=== PATIENT | female | born 1980 | race American Indian/Alaskan Native ===

== ENCOUNTER 2019-04-04 18:38 | Emergency (ER) | payer SELFPAY ==
--- NOTE | 2019-04-04 18:47 | Event Note ---
ED Screening Note ED Screening Note: went to the clinic advised to be seen in the ED having vaginal bleeding 5 days pt is currently 9 weeks no abd pain /P:1/A:0 no PMHx no allergies to meds This initial assessment/diagnostic orders/clinical plan/treatment(s) is/are subject to change based on patients health status, clinical progression and re- assessment by fellow clinical providers in the ED. Further treatment and workup at subsequent clinical providers discretion. Patient/guardian urged not to elope from the ED as their condition may be serious if not clinically assessed and managed. Initial orders include: labs, UA, US
[2019-04-04 18:51] VITALS: BP 114/54
[2019-04-04 20:03] LABS: Basophils % (Auto) 0.5 % (0.0-1.8); Eosinophils # (Auto) 0.2 K/mm3 (0.0-0.4); Eosinophils % (Auto) 2.5 % (0.0-4.3); Hematocrit 36.3 % (30.3-42.9); Hemoglobin 12.1 gm/dl (10.1-14.3); Lymphocytes # (Auto) 1.3 K/mm3 (1.2-5.4); Lymphocytes % (Auto) 18.3 % (13.4-35.0); Mean Corpuscular HGB Conc 33 % (30-34); Mean Corpuscular Volume 87 fl (79-97); Monocytes # (Auto) 0.4 K/mm3 (0.0-0.8); Monocytes % (Auto) 4.9 % (0.0-7.3); Platelet Count 272 K/mm3 (140-440); Red Blood Count 4.15 M/mm3 (3.65-5.03); Red Cell Distribution Width 13.8 % (13.2-15.2)
[2019-04-04 20:10] LABS: Bilirubin,Urine NEG (Negative); Blood,Urine LG (Negative); Color,Urine Yellow (Yellow); Mucus,Urine FEW /HPF; Urobilinogen,Urine < 2.0 mg/dL (<2.0)
[2019-04-04 20:15] LABS: RBC,Urine > 182.0 /HPF (0.0-6.0)
--- NOTE | 2019-04-04 21:27 | Emergency Department Report ---
ED Female HPI - General Chief complaint: Vaginal Bleeding Stated complaint: /BLEEDING Time Seen by Provider: 04/04/19 18:45 Source: patient Mode of arrival: Ambulatory Limitations: No Limitations - History of Present Illness Initial comments: This is a 38-year-old who presents to the ED cc of vaginal bleeding for the past 5 days. Patient went to the clinic and had a test done and was told to come to ED for evaluation based on the vaginal bleeding.went to the clinic advised to be seen in the ED. Pt states that b manuelito was heavier than it is today, she denies f/c/n/v/abdominal or pelvic pain Complaint: vaginal bleeding - Related Data Previous Rx's Medication Instructions Recorded Last Taken Type Acetaminophen [Acetaminophen ER 650 mg PO Q8HR PRN #20 tablet.er 04/04/19 Unknown Rx TAB] Vit-Fe Fumar-FA [ 1 tab PO QDAY #30 tablet 04/04/19 Unknown Rx Vitamin] Allergies Allergy/AdvReac Type Severity Reaction Status Date / Time No Known Allergies Allergy Unverified 04/04/19 18:51 ED Review of Systems ROS: Stated complaint: /BLEEDING Other details as noted in HPI Comment: All other systems reviewed and negative ED Past Medical Hx - Past Medical History Previous Medical History?: No - Surgical History Past Surgical History?: No - Social History Smoking Status: Never Smoker Substance Use Type: None - Medications Home Medications: Home Medications Medication Instructions Recorded Confirmed Last Taken Type Acetaminophen [Acetaminophen ER 650 mg PO Q8HR PRN #20 tablet.er 04/04/19 Unknown Rx TAB] Vit-Fe Fumar-FA [ 1 tab PO QDAY #30 tablet 04/04/19 Unknown Rx Vitamin] ED Physical Exam - General Limitations: No Limitations General appearance: alert, in no apparent distress - Head Head exam: Present: atraumatic, normocephalic - Eye Eye exam: Present: normal appearance - ENT ENT exam: Present: mucous membranes moist - Neck Neck exam: Present: normal inspection - Respiratory Respiratory exam: Present: normal lung sounds bilaterally. Absent: respiratory distress - Cardiovascular Cardiovascular Exam: Present: regular rate, normal rhythm. Absent: systolic murmur, diastolic murmur, rubs, gallop - GI/Abdominal GI/Abdominal exam: Present: soft, normal bowel sounds. Absent: distended, tenderness, mass - Extremities Exam Extremities exam: Present: normal inspection - Back Exam Back exam: Present: normal inspection - Neurological Exam Neurological exam: Present: alert, oriented X3 - Psychiatric Psychiatric exam: Present: normal affect, normal mood - Skin Skin exam: Present: warm, dry, intact, normal color. Absent: rash ED Course Vital Signs 04/04/19 18:45 Temperature 98.1 F Pulse Rate 88 Respiratory 19 Rate Blood Pressure 114/54 [Left] O2 Sat by Pulse 98 Oximetry ED Medical Decision Making - Lab Data Result diagrams: 04/04/19 19:02 - Radiology Data Radiology results: report reviewed, image reviewed OB ultrasound. 04/04/2019. HISTORY: . Vaginal bleeding. FINDINGS: Imaging was performed transabdominally and endovaginally. The uterus measures 8.5 x 6.1 x 7.4 cm. Single early intrauterine is dated 6 weeks 4 days. No heart tones are identified at this time. A small adjacent bleed is likely present. The right ovary measures 4.8 x 1.9 x 2.4 cm. The left ovary measures 2.4 x 1.4 x 1.3 cm. Both ovaries contain flow. Negative for adnexal mass or fluid. IMPRESSION: 1. Early intrauterine . heart tones are not identified this time. 2. Negative for significant adnexal abnormality. Signer Name: Fercho Whittington MD Signed: 04/04/2019 9:24 PM Workstation Name: [id number] Transcribed By: ES Dictated By: Fercho Whittington MD Electronically Authenticated By: Fercho Whittington MD Signed Date/Time: 04/04/192123 The - Medical Decision Making 38-year-old female presents to ED with threatened /vaginal bleeding ED course: Pt received ultra sound, CBC, urinalysis, test and quantitative ED All labs within normal limits, quantitative elevated matching gestation age Ultrasound shows early IUP with no heart tones yet. See reported above Vital signs normalized patient is in no acute distress. I discussed with the patient if follow-up with her [facility]. In 2-3 days. Referrals given I discussed all labs and ultrasound findings with the patient. I discussed with the patient that he if bleeding worsens or new symptoms develop to return to ED immediately Critical care attestation.: If time is entered above; I have spent that time in minutes in the direct care of this critically ill patient, excluding procedure time. ED Disposition Clinical Impression: Vaginal bleeding during , Threatened Disposition: TO HOME OR SELFCARE Is pt being admited?: No Does the pt Need Aspirin: No Condition: Stable Instructions: Threatened Miscarriage (ED), (ED) Additional Instructions: Make sure to follow up with the obgyn as discussed. Take your medications as you've been prescribed. If you have any worsening symptoms or develop new symptoms please return to ED immediately. Prescriptions: Acetaminophen [Acetaminophen ER TAB] 650 mg PO Q8HR PRN #20 tablet.er PRN Reason: Pain Vit-Fe Fumar-FA [ Vitamin] 1 tab PO QDAY #30 tablet Referrals: [facility] [Provider Group] - 3-5 Days [facility] [Provider Group] - 3-5 Days [facility] [Provider Group] - 3-5 Days Forms: Accompanied Note, Work/School Release Form(ED) Time of Disposition: 22:23 Print Language: DUTCH
== END 2019-04-04 22:42 | disposition home or self-care (01) ==
LOC: ED 18:38
DX: O20.0 Threatened abortion (principal); Z3A.01 Less than 8 weeks gestation of pregnancy
CPT/HCPCS: 36415; 76801; 76802; 76817; 81001; 84702; 85025; 86900; 86901; 87086